=== PATIENT | female | born 1940 | race Caucasian/White ===

== ENCOUNTER → 2016-04-12 | Outpatient (CLI) | payer MEDICARE ==
[~2016-04-12] MED LIST: ACTOS 45MG45 MG/TAB PO; BUMEX2 MG PO; CEFTIN500 MG PO; CEPACOL SORE TH1 LO8 MM; COZAAR 25MG25 MG/TAB PO; DELSYM30 MG/5 ML PO; DIOVAN 40MG40 MG PO; DOXYCYCLINE 10100 MG PO; GLUCOPHAGE500 MG/TAB PO; GLUCOTROL XL2.5 MG PO; HYTRIN 1MG C1 MG/CAP PO; ISORDIL 20MG20 M1 PO; LASIX 20MG TABL20 MG PO; LASIX 40MG TABL40 MG PO; MUCINEX DM 30 M1 TE1; NO HOME MEDICATIONS; NORVASC2.5 MG PO; PHOSLO667 MG PO; PRILOSEC 20MG20 MG PO; PRINIVIL10 MG PO; PROAIR HFA0.09 MG/AC IH; PYRIDIUM200 M1 PO; SODIUM BICARBO650 MG PO; TESSALON P100 MG/CAP PO; TOPROL XL 25MG25 MG PO; TOPROL XL 50MG50 MG PO; TUSS PO; ZESTRIL 20MG TA20 MG PO; ZITHROMAX 250M250 MG PO
[2016-04-12 11:42] LABS: ALBUMIN 3.7 gm/dL (3.5-5.0); CALCIUM 9.2 mg/dL (8.4-10.2); CREATININE, serum 2.64 mg/dL (0.52-1.25); PHOSPHOROUS 5.4 mg/dL (2.5-4.5); POTASSIUM 5.2 mmol/L (3.4-5.0)
== END ==
LOC: COL.LAB 10:55
PROVIDERS: Internal Medicine
DX: N18.9 Chronic kidney disease, unspecified (principal)

== ENCOUNTER 2016-04-24 07:26 | Inpatient (IN) | payer MEDICARE ==
[~2016-04-24] VITALS: Ht 149.9 cm; Wt 57.6 kg
[~2016-04-24 07:26] MED LIST changes: -BUMEX2 MG PO; -CEPACOL SORE TH1 LO8 MM; -HYTRIN 1MG C1 MG/CAP PO; -ISORDIL 20MG20 M1 PO; -PHOSLO667 MG PO; -SODIUM BICARBO650 MG PO
[2016-04-24 08:10] LABS: BASO % 0.6 % (0.0-2.0); EOS % 0.6 % (0-4.0); GRAN # 4.9 (1.4-6.5); GRAN % 72.8 % (42.2-75.2); LYMPH # 1.5 (1.2-3.4); MEAN CELL VOLUME 92 fl (80.0-100.0); MEAN CORPUSCULAR HGB CONC 33 g/dl (33.0-37.0); MONO # 0.2 (0.1-0.6); MONO % 3.6 % (1.7-9.3); PLATELET COUNT 254 K/mm3 (130-400); RED BLOOD COUNT 3.48 M/mm3 (4.10-5.30); REDCELL DISTRIBUTION WIDTH-CV 14.4 % (11.5-14.5); WHITE BLOOD COUNT 6.7 K/mm3 (4.8-10.8)
[2016-04-24 08:14] LABS: INR 1.1 (0.8-3.0); PROTHROMBIN TIME 12.7 SECONDS (9.7-12.8)
[2016-04-24 08:18] LABS: HEMATOCRIT 31.9 % (37.0-47.0); HEMOGLOBIN 10.4 g/dl (12.5-16.0); MEAN CORPUSCULAR HEMOGLOBIN 30 pg (27.0-31.0)
[2016-04-24 08:21] LABS: ADJUSTED CALCIUM 9.1 mg/dL (8.4-10.2); ALBUMIN 3.8 gm/dL (3.5-5.0); BILIRUBIN,TOTAL 1.4 mg/dL (0.0-1.0); CALCIUM 8.9 mg/dL (8.4-10.2); CREATININE, serum 2.94 mg/dL (0.52-1.25); TOTAL PROTEIN 7.6 gm/dL (6.4-8.2)
[2016-04-24 08:28] LABS: POTASSIUM 5.9 mmol/L (3.4-5.0)
[2016-04-24 08:33] LABS: TROPONIN-I 0.015 ng/mL (0.000-0.034)
[2016-04-24 09:19] LABS: PH 5 (5-8); SQUAMOUS EPITHELIAL 0-2 /hpf; URINE APPEARANCE Clear; URINE BACTERIA Rare /hpf; URINE BILIRUBIN Negative (NEGATIVE); URINE BLOOD 1+ (NEGATIVE); URINE COLOR Yellow; URINE GLUCOSE 1+ (NEGATIVE); URINE KETONE Negative (NEGATIVE); URINE UROBILINOGEN Negative (NEGATIVE)
[2016-04-24 10:13] VITALS: BP 159/75; PULSE 71; TEMP 97.9
[2016-04-24 12:15] VITALS: BP 163/72; PULSE 72; TEMP 97.6
[2016-04-24 12:57] LABS: AMYLASE 59 U/L (30-110); LIPASE 70 U/L (23-300)
[2016-04-24 15:41] VITALS: BP 155/63; PULSE 65; TEMP 97.6
[2016-04-24 20:38] VITALS: BP 152/65; PULSE 68; TEMP 97.2
[2016-04-25 00:03] VITALS: BP 153/62; PULSE 68; TEMP 97.4
[2016-04-25 03:37] VITALS: BP 152/73; PULSE 65; TEMP 97.7
[2016-04-25 07:55] LABS: CALCIUM 8.9 mg/dL (8.4-10.2); CREATININE, serum 3.19 mg/dL (0.52-1.25); PHOSPHOROUS 6.4 mg/dL (2.5-4.5); POTASSIUM 5.4 mmol/L (3.4-5.0)
[2016-04-25 08:32] VITALS: BP 164/69; PULSE 75; TEMP 97.5
[2016-04-25 12:36] VITALS: BP 153/66; PULSE 62; TEMP 97.3
[2016-04-25 17:21] VITALS: BP 102/70; PULSE 65; TEMP 97.3
[2016-04-25 20:12] VITALS: BP 152/64; PULSE 62; TEMP 97.5
[2016-04-25 22:16] LABS: PROT-CREAT RATIO, URINE 4.5 (())
[2016-04-26] VITALS (7 sets, daily range): BP systolic 154–174; BP diastolic 59–69; PULSE 53–86; TEMP 97.4–98.1
[2016-04-26 07:26] LABS: ALBUMIN 3.6 gm/dL (3.5-5.0); CALCIUM 8.5 mg/dL (8.4-10.2); CREATININE, serum 3.39 mg/dL (0.52-1.25); PHOSPHOROUS 5.9 mg/dL (2.5-4.5); POTASSIUM 4.5 mmol/L (3.4-5.0)
[2016-04-27 03:52] VITALS: BP 151/69; PULSE 52; TEMP 97.6
[2016-04-27 08:29] LABS: ALBUMIN 3.5 gm/dL (3.5-5.0); CALCIUM 8.4 mg/dL (8.4-10.2); CREATININE, serum 3.37 mg/dL (0.52-1.25); PHOSPHOROUS 5.4 mg/dL (2.5-4.5); POTASSIUM 4.2 mmol/L (3.4-5.0)
[2016-04-27 08:44] VITALS: BP 156/57; PULSE 57; TEMP 96.1
[2016-04-27] MEDS ORDERED: BUMEX2 MG PO (10:27)
[2016-04-27] MEDS ORDERED: SODIUM BICARBO650 MG PO (10:31)
[2016-04-27] MEDS ORDERED: DIOVAN 40MG40 MG PO (10:31)
== END 2016-04-27 11:54 | disposition home or self-care (01) | DRG 291 ==
LOC: COL.ER 07:26 → MEDICAL 09:15
PROVIDERS: Family Medicine; Internal Medicine Nephrology
DX: I13.0 Hypertensive heart and chronic kidney disease with heart failure and stage 1 through stage 4 chronic kidney disease, or unspecified chronic kidney disease (principal); I50.23 Acute on chronic systolic (congestive) heart failure; N18.4 Chronic kidney disease, stage 4 (severe); E87.2 Acidosis; E11.21 Type 2 diabetes mellitus with diabetic nephropathy; D63.1 Anemia in chronic kidney disease; E11.65 Type 2 diabetes mellitus with hyperglycemia; E87.5 Hyperkalemia
CPT/HCPCS: J1650

== ENCOUNTER → 2016-05-11 | Outpatient (CLI) | payer MEDICARE ==
[~2016-05-11] MED LIST changes: +BUMEX2 MG PO; +CEPACOL SORE TH1 LO8 MM; +HYTRIN 1MG C1 MG/CAP PO; +ISORDIL 20MG20 M1 PO; +PHOSLO667 MG PO; +SODIUM BICARBO650 MG PO
[2016-05-11 11:06] LABS: CREATININE, serum 3.43 mg/dL (0.52-1.25); POTASSIUM 4.8 mmol/L (3.4-5.0)
[2016-05-11 11:08] LABS: HEMATOCRIT 34.7 % (37.0-47.0); HEMOGLOBIN 11.7 g/dl (12.5-16.0)
[2016-05-11 23:28] LABS: PROT-CREAT RATIO, URINE 3.2 (())
== END ==
LOC: COL.LAB 05-10 10:52
PROVIDERS: Internal Medicine Nephrology
DX: Z01.89 Encounter for other specified special examinations (principal)

== ENCOUNTER → 2016-06-20 | Outpatient (CLI) | payer MEDICARE ==
[2016-06-20 11:11] LABS: HEMATOCRIT 31.6 % (37.0-47.0); HEMOGLOBIN 10.6 g/dl (12.5-16.0)
[2016-06-20 11:20] LABS: ALBUMIN 3.7 gm/dL (3.5-5.0); CALCIUM 8.7 mg/dL (8.4-10.2); CREATININE, serum 3.59 mg/dL (0.52-1.25); PHOSPHOROUS 5.7 mg/dL (2.5-4.5)
[2016-06-20 22:45] LABS: HEPATITIS B SURFACE AB-QL Negative (())
== END ==
LOC: COL.LAB 10:45
PROVIDERS: Internal Medicine Nephrology
DX: Z01.89 Encounter for other specified special examinations (principal)

== ENCOUNTER 2016-07-13 18:43 | Inpatient (IN) | payer MEDICARE ==
[~2016-07-13] VITALS: Wt 61.4 kg
[~2016-07-13 18:43] MED LIST changes: -CEPACOL SORE TH1 LO8 MM; -HYTRIN 1MG C1 MG/CAP PO; -ISORDIL 20MG20 M1 PO; -PHOSLO667 MG PO
[2016-07-13 20:20] LABS: ADJUSTED CALCIUM 8.8 mg/dL (8.4-10.2); CALCIUM 8.8 mg/dL (8.4-10.2); POTASSIUM 4.8 mmol/L (3.4-5.0); TOTAL PROTEIN 7.8 gm/dL (6.4-8.2)
[2016-07-13 20:22] LABS: CREATININE, serum 4.06 mg/dL (0.52-1.25)
[2016-07-13 20:27] LABS: BASO # 0.1 (0.0-0.2); BASO % 0.5 % (0.0-2.0); EOS # 0.1 (0.0-0.7); EOS % 0.9 % (0-4.0); GRAN # 7.5 (1.4-6.5); GRAN % 75.4 % (42.2-75.2); LYMPH # 1.7 (1.2-3.4); LYMPH % 16.9 % (20.0-51.0); MEAN CELL VOLUME 88 fl (80.0-100.0); MEAN CORPUSCULAR HGB CONC 34 g/dl (33.0-37.0); MEAN PLATELET VOLUME 10.7 fl (7.4-10.4); MONO # 0.6 (0.1-0.6); PLATELET COUNT 278 K/mm3 (130-400); RED BLOOD COUNT 3.37 M/mm3 (4.10-5.30)
[2016-07-13 20:31] LABS: TROPONIN-I 0.014 ng/mL (0.000-0.034)
[2016-07-13 20:34] LABS: HEMATOCRIT 29.6 % (37.0-47.0); HEMOGLOBIN 10.1 g/dl (12.5-16.0); MEAN CORPUSCULAR HEMOGLOBIN 30 pg (27.0-31.0)
[2016-07-13 20:37] LABS: INFLUENZA B NEGATIVE
[2016-07-13 20:37] LABS: INR 1.2 (0.8-3.0); PROTHROMBIN TIME 13.3 SECONDS (9.7-12.8)
[2016-07-13 20:40] LABS: PARTIAL THROMBOPLASTIN TIME 26.2 SECONDS (26.0-37.0)
[2016-07-13] MEDS ORDERED: HYTRIN 1MG C1 MG/CAP PO (20:47)
[2016-07-13] MEDS ORDERED: PHOSLO667 MG PO (20:50)
[2016-07-14 02:11] VITALS: BP 155/65; PULSE 112; TEMP 98.4
[2016-07-14 04:08] VITALS: BP 126/59; PULSE 94; TEMP 98
[2016-07-14 07:38] VITALS: BP 105/42; PULSE 82; TEMP 99.4
[2016-07-14 13:15] VITALS: BP 133/80; PULSE 83; TEMP 98
[2016-07-14 15:19] VITALS: BP 151/70; PULSE 55
[2016-07-14 19:50] VITALS: BP 151/65; PULSE 83; TEMP 97.6
[2016-07-15 00:20] VITALS: BP 115/40; PULSE 82; TEMP 98.2
[2016-07-15 03:35] VITALS: BP 115/53; PULSE 84; TEMP 98.8
[2016-07-15 08:00] VITALS: BP 132/63; PULSE 76; TEMP 97.8
[2016-07-15 08:11] LABS: ALBUMIN 3.2 gm/dL (3.5-5.0); PHOSPHOROUS 5.8 mg/dL (2.5-4.5); POTASSIUM 4.5 mmol/L (3.4-5.0)
[2016-07-15 08:12] LABS: BASO % 0.5 % (0.0-2.0); EOS # 0.2 (0.0-0.7); EOS % 2.4 % (0-4.0); GRAN % 64.3 % (42.2-75.2); LYMPH # 1.5 (1.2-3.4); MEAN CELL VOLUME 90 fl (80.0-100.0); MEAN CORPUSCULAR HGB CONC 34 g/dl (33.0-37.0); MEAN PLATELET VOLUME 10.6 fl (7.4-10.4); MONO # 0.5 (0.1-0.6); MONO % 8.3 % (1.7-9.3); PLATELET COUNT 252 K/mm3 (130-400); RED BLOOD COUNT 2.76 M/mm3 (4.10-5.30); REDCELL DISTRIBUTION WIDTH-CV 13.1 % (11.5-14.5); WHITE BLOOD COUNT 6.2 K/mm3 (4.8-10.8)
[2016-07-15 08:27] LABS: HEMOGLOBIN 8.4 g/dl (12.5-16.0); MEAN CORPUSCULAR HEMOGLOBIN 30 pg (27.0-31.0)
[2016-07-15 08:28] LABS: HEMATOCRIT 24.8 % (37.0-47.0)
[2016-07-15 08:32] LABS: CREATININE, serum 4.54 mg/dL (0.52-1.25)
[2016-07-15 08:48] LABS: ADD PATHOLOGY DIFF REVIEW NO
[2016-07-15 10:18] LABS: BAND 8 % (0-10); NEUTROPHILS 66 % (42.0-75.2); PLATELET ESTIMATE NORMAL (NORMAL); TOTAL CELLS COUNTED 100
[2016-07-15 12:44] VITALS: BP 126/50; PULSE 84; TEMP 98.3
[2016-07-15] MEDS ORDERED: SODIUM BICARBO650 MG PO (16:35)
[2016-07-15] MEDS ORDERED: ISORDIL 20MG20 M1 PO (16:36)
[2016-07-15] MEDS ORDERED: PHOSLO667 MG PO (16:39)
[2016-07-15] MEDS ORDERED: DIOVAN 40MG40 MG PO (16:54)
[2016-07-15] MEDS ORDERED: BUMEX2 MG PO (17:09)
[2016-07-15] MEDS ORDERED: CEPACOL SORE TH1 LO8 MM (17:12)
== END 2016-07-15 17:50 | disposition home or self-care (01) | DRG 291 ==
LOC: COL.ER 18:43 → MEDICAL 21:38
PROVIDERS: Emergency Medicine; Internal Medicine Nephrology
DX: I13.2 Hypertensive heart and chronic kidney disease with heart failure and with stage 5 chronic kidney disease, or end stage renal disease (principal); I50.21 Acute systolic (congestive) heart failure; N18.5 Chronic kidney disease, stage 5; D63.1 Anemia in chronic kidney disease; E11.21 Type 2 diabetes mellitus with diabetic nephropathy; E11.22 Type 2 diabetes mellitus with diabetic chronic kidney disease; I08.0 Rheumatic disorders of both mitral and aortic valves
CPT/HCPCS: J1650; J1815

== ENCOUNTER → 2016-07-25 | Outpatient (CLI) | payer MEDICARE ==
[~2016-07-25] MED LIST changes: +CEPACOL SORE TH1 LO8 MM; +HYTRIN 1MG C1 MG/CAP PO; +ISORDIL 20MG20 M1 PO; +PHOSLO667 MG PO
[2016-07-25 13:10] LABS: HEMOGLOBIN 10.2 g/dl (12.5-16.0)
[2016-07-25 13:15] LABS: ALBUMIN 3.9 gm/dL (3.5-5.0); CALCIUM 8.9 mg/dL (8.4-10.2); CREATININE, serum 3.2 mg/dL (0.52-1.25); PHOSPHOROUS 4.9 mg/dL (2.5-4.5); POTASSIUM 5.4 mmol/L (3.4-5.0)
[2016-07-25 21:41] LABS: HEPATITIS B SURFACE AB-QL Negative (())
== END ==
LOC: COL.LAB 09:52
PROVIDERS: Internal Medicine Nephrology
DX: I50.9 Heart failure, unspecified (principal); N19 Unspecified kidney failure

== ENCOUNTER → 2016-08-09 | Outpatient (CLI) | payer MEDICARE ==
[2016-08-09 13:09] LABS: ALBUMIN 3.8 gm/dL (3.5-5.0); CALCIUM 8.2 mg/dL (8.4-10.2); CREATININE, serum 3.04 mg/dL (0.52-1.25); PHOSPHOROUS 4.8 mg/dL (2.5-4.5); POTASSIUM 5.1 mmol/L (3.4-5.0)
== END ==
LOC: COL.LAB 11:54
PROVIDERS: Internal Medicine Nephrology
DX: Z01.89 Encounter for other specified special examinations (principal)

== ENCOUNTER → 2016-09-19 | Outpatient (CLI) | payer MEDICARE ==
[2016-09-19 12:12] LABS: ALBUMIN 3.7 gm/dL (3.5-5.0); CALCIUM 8.5 mg/dL (8.4-10.2); CREATININE, serum 3.48 mg/dL (0.52-1.25); PHOSPHOROUS 4.6 mg/dL (2.5-4.5)
[2016-09-19 12:37] LABS: POTASSIUM 5.9 mmol/L (3.4-5.0)
== END ==
LOC: COL.LAB 10:54
PROVIDERS: Internal Medicine Nephrology
DX: Z01.89 Encounter for other specified special examinations (principal)

== ENCOUNTER → 2016-10-03 | Outpatient (CLI) | payer MEDICARE ==
[2016-10-03 11:43] LABS: HEMATOCRIT 27.6 % (37.0-47.0); HEMOGLOBIN 9.4 g/dl (12.5-16.0)
[2016-10-03 11:49] LABS: CALCIUM 7.7 mg/dL (8.4-10.2); PHOSPHOROUS 7.5 mg/dL (2.5-4.5); POTASSIUM 4.6 mmol/L (3.4-5.0)
[2016-10-03 12:31] LABS: CREATININE, serum 4.49 mg/dL (0.52-1.25)
== END ==
LOC: COL.LAB 10:23
PROVIDERS: Internal Medicine Nephrology
DX: N18.4 Chronic kidney disease, stage 4 (severe) (principal); D63.1 Anemia in chronic kidney disease

== ENCOUNTER → 2016-12-12 | Outpatient (CLI) | payer MEDICARE ==
[2016-12-12 10:39] LABS: HEMATOCRIT 28.9 % (37.0-47.0); HEMOGLOBIN 9.9 g/dl (12.5-16.0)
[2016-12-12 10:51] LABS: CALCIUM 8.5 mg/dL (8.4-10.2); POTASSIUM 5.7 mmol/L (3.4-5.0)
[2016-12-12 12:08] LABS: CREATININE, serum 3.94 mg/dL (0.52-1.25)
== END ==
LOC: COL.LAB 09:36
PROVIDERS: Internal Medicine Nephrology
DX: N18.4 Chronic kidney disease, stage 4 (severe) (principal); D63.1 Anemia in chronic kidney disease

== ENCOUNTER → 2017-03-06 | Outpatient (CLI) | payer MEDICARE ==
[2017-03-06 10:29] LABS: ALBUMIN 3.7 gm/dL (3.5-5.0); CALCIUM 7.8 mg/dL (8.4-10.2); PHOSPHOROUS 5.8 mg/dL (2.5-4.5); POTASSIUM 5.1 mmol/L (3.4-5.0)
[2017-03-06 10:35] LABS: CREATININE, serum 4.38 mg/dL (0.52-1.25)
== END ==
LOC: COL.LAB 10:00
PROVIDERS: Internal Medicine Nephrology
DX: N18.5 Chronic kidney disease, stage 5 (principal)

== ENCOUNTER → 2017-04-04 | Outpatient (CLI) | payer MEDICARE ==
[2017-04-04 11:54] LABS: ALBUMIN 3.9 gm/dL (3.5-5.0); CALCIUM 7.1 mg/dL (8.4-10.2); PHOSPHOROUS 5.7 mg/dL (2.5-4.5); POTASSIUM 4.8 mmol/L (3.4-5.0)
[2017-04-04 12:10] LABS: CREATININE, serum 4.5 mg/dL (0.52-1.25)
== END ==
LOC: COL.LAB 11:21
PROVIDERS: Internal Medicine Nephrology
DX: N18.5 Chronic kidney disease, stage 5 (principal)

== ENCOUNTER → 2017-06-12 | Outpatient (CLI) | payer MEDICARE ==
[2017-06-12 11:04] LABS: ALBUMIN 3.7 gm/dL (3.5-5.0); CALCIUM 6.7 mg/dL (8.4-10.2); PHOSPHOROUS 6.1 mg/dL (2.5-4.5); POTASSIUM 4.9 mmol/L (3.4-5.0)
[2017-06-12 13:35] LABS: CREATININE, serum 4.83 mg/dL (0.52-1.25)
== END ==
LOC: COL.LAB 10:35
PROVIDERS: Internal Medicine Nephrology
DX: N18.5 Chronic kidney disease, stage 5 (principal)

== ENCOUNTER → 2017-08-22 | Outpatient (CLI) | payer MEDICARE ==
[~2017-08-22] MED LIST changes: +APRESOLINE50 MG PO; +ASPIRIN 81M81 MG/TA2 PO
[2017-08-22 10:53] LABS: POTASSIUM 4.9 mmol/L (3.4-5.0)
== END ==
LOC: COL.LAB 10:13
PROVIDERS: Internal Medicine Nephrology
DX: Z01.89 Encounter for other specified special examinations (principal)

== ENCOUNTER → 2017-11-06 | Outpatient (CLI) | payer MEDICARE ==
[2017-11-06 12:09] LABS: ALBUMIN 3.6 gm/dL (3.5-5.0); PHOSPHOROUS 6.7 mg/dL (2.5-4.5)
[2017-11-06 12:21] LABS: CALCIUM 5.6 mg/dL (8.4-10.2); CREATININE, serum 5.41 mg/dL (0.52-1.25)
== END ==
LOC: COL.LAB 11:39
PROVIDERS: Internal Medicine Nephrology
DX: I50.22 Chronic systolic (congestive) heart failure (principal); N18.5 Chronic kidney disease, stage 5

== ENCOUNTER → 2017-12-13 | Outpatient (CLI) | payer MEDICARE ==
[2017-12-13 10:56] LABS: ALBUMIN 3.7 gm/dL (3.5-5.0); PHOSPHOROUS 5.6 mg/dL (2.5-4.5); POTASSIUM 4.7 mmol/L (3.4-5.0)
[2017-12-13 12:33] LABS: CALCIUM 5.7 mg/dL (8.4-10.2); CREATININE, serum 5.5 mg/dL (0.52-1.25)
== END ==
LOC: COL.LAB 10:13
PROVIDERS: Family Medicine
DX: N18.5 Chronic kidney disease, stage 5 (principal); I50.22 Chronic systolic (congestive) heart failure; R60.0 Localized edema

== ENCOUNTER → 2018-03-08 | Outpatient (CLI) | payer MEDICARE ==
[2018-03-08 12:22] LABS: CALCIUM 6.1 mg/dL (8.4-10.2); POTASSIUM 4.4 mmol/L (3.4-5.0)
[2018-03-08 12:46] LABS: CREATININE, serum 6.02 mg/dL (0.52-1.25)
== END ==
LOC: COL.LAB 10:51
PROVIDERS: Internal Medicine Nephrology
DX: I12.0 Hypertensive chronic kidney disease with stage 5 chronic kidney disease or end stage renal disease (principal); N18.5 Chronic kidney disease, stage 5; R60.0 Localized edema

== ENCOUNTER → 2018-06-28 | Outpatient (CLI) | payer MEDICARE ==
[2018-06-28 11:41] LABS: ALBUMIN 3.6 gm/dL (3.5-5.0); CALCIUM 6.1 mg/dL (8.4-10.2); CREATININE, serum 6.78 (0.52-1.25); PHOSPHOROUS 6.1 mg/dL (2.5-4.5); POTASSIUM 5.1 mmol/L (3.4-5.0)
== END ==
LOC: COL.LAB 10:45
PROVIDERS: Internal Medicine Nephrology
DX: Z01.89 Encounter for other specified special examinations (principal)

== ENCOUNTER 2018-10-06 14:21 | Inpatient (IN) | payer MEDICARE ==
[~2018-10-06] VITALS: Ht 160 cm; Wt 58.6 kg
[2018-10-06 16:03] LABS: COLLECTION METHOD CLEAN CATCH
[2018-10-06 16:04] LABS: BASO % 0.2 % (0.0-2.0); EOS # 0.1 (0.0-0.7); EOS % 0.7 % (0-4.0); GRAN # 7.4 (1.4-6.5); LYMPH # 0.8 (1.2-3.4); LYMPH % 9.4 % (20.0-51.0); MEAN CELL VOLUME 94 fl (80.0-100.0); MEAN CORPUSCULAR HGB CONC 34 g/dl (33.0-37.0); MEAN PLATELET VOLUME 9.5 fl (7.4-10.4); MONO # 0.4 (0.1-0.6); MONO % 4.4 % (1.7-9.3); PLATELET COUNT 288 K/mm3 (130-400); RED BLOOD COUNT 2.63 M/mm3 (4.10-5.30); REDCELL DISTRIBUTION WIDTH-CV 12.6 % (11.5-14.5)
[2018-10-06 16:06] LABS: HEMATOCRIT 24.7 % (37.0-47.0); HEMOGLOBIN 8.3 g/dl (12.5-16.0); MEAN CORPUSCULAR HEMOGLOBIN 32 pg (27.0-31.0)
[2018-10-06 16:09] LABS: MUCOUS Present /lpf; PH 6 (5-8); SQUAMOUS EPITHELIAL 0-2 /hpf; URINE APPEARANCE Clear; URINE BACTERIA Rare /hpf; URINE BILIRUBIN Negative (NEGATIVE); URINE BLOOD Negative (NEGATIVE); URINE COLOR Straw; URINE GLUCOSE 1+ (NEGATIVE); URINE KETONE Negative (NEGATIVE); URINE LEUKOCYTE ESTERASE Negative (NEGATIVE); URINE NITRATE Negative (NEGATIVE); URINE PROTEIN(semi-quant) 2+ (NEGATIVE); URINE RBC 0-2 /hpf; URINE UROBILINOGEN Negative (NEGATIVE)
[2018-10-06 16:15] LABS: ALANINE AMINOTRANSFERASE < 6 U/L (9-52); ALBUMIN 3.8 gm/dL (3.5-5.0); ALKALINE PHOSPHATASE 102 U/L (50-136); ANION GAP 14 mmol/L (7-16); AST,SGOT 26 U/L (15-37); BILIRUBIN,TOTAL 0.4 mg/dL (0.0-1.0); BLOOD UREA NITROGEN 99 mg/dL (7-17); CARBON DIOXIDE 18 mmol/L (22-30); CHLORIDE 106 mmol/L (98-107); GLUCOSE 146 mg/dL (74-106); LIPASE 181 U/L (23-300); POTASSIUM 5.6 mmol/L (3.4-5.0); SODIUM 137 mmol/L (137-145); TOTAL PROTEIN 7.6 gm/dL (6.4-8.2)
[2018-10-06 16:19] LABS: CREATININE, serum 7.89 (0.52-1.25)
[2018-10-06 16:21] LABS: CALCIUM 5.3 mg/dL (8.4-10.2)
[2018-10-06 17:11] LABS: MAGNESIUM 1.7 mg/dL (1.6-2.3); PHOSPHOROUS 6.2 mg/dL (2.5-4.5)
--- NOTE | 2018-10-06 19:25 | NUR ---
Received from ED, 78 year old female with diagnosis nausea/vomiting and weakness. Is alert, Bengali speaking female accompanied by family. Has SL to left hand without redness or swelling. Has oxygen on at 2L/NC for shortness of breath. Assisted to bed, call light and bed orientation provided to patient and spouse HarishJeffrey
[2018-10-06 19:50] VITALS: BP 182/75; PULSE 85; TEMP 98.1
--- NOTE | 2018-10-06 20:35 | NUR ---
Notified Dr Riuz of patients arrival. New orders received.
--- NOTE | 2018-10-06 21:30 | NUR ---
Takes HS meds including jello and juice. BS=71mg/dl. HOB elevated for comfort.
--- NOTE | 2018-10-06 23:20 | NUR ---
Patient up to bathroom with help to void. Short of breath with walking. Back to bed, oxygen put on at 3L/NC. Head of bed elevated for comfort.
[2018-10-06 23:46] VITALS: BP 151/58; PULSE 78; TEMP 97.8
[2018-10-07 03:58] VITALS: BP 147/65; PULSE 72; TEMP 98.3
--- NOTE | 2018-10-07 04:23 | NUR ---
Assisted patient to bathroom, slow steady gait. Voids and back to bed. Not as noticeably short of breath as last time she went to the bathroom, placed back on oxygen at 3L/nc.
[2018-10-07 07:11] LABS: ALBUMIN 3.1 gm/dL (3.5-5.0); PHOSPHOROUS 6.5 mg/dL (2.5-4.5); POTASSIUM 4.9 mmol/L (3.4-5.0)
[2018-10-07 07:13] LABS: INR 1.1 (0.8-3.0); PROTHROMBIN TIME 13.3 SECONDS (9.7-12.8)
[2018-10-07 07:17] LABS: BASO % 0.6 % (0.0-2.0); EOS # 0.1 (0.0-0.7); EOS % 2.3 % (0-4.0); GRAN # 4.6 (1.4-6.5); LYMPH % 15.7 % (20.0-51.0); MEAN CELL VOLUME 96 fl (80.0-100.0); MEAN CORPUSCULAR HGB CONC 32 g/dl (33.0-37.0); MEAN PLATELET VOLUME 9.7 fl (7.4-10.4); MONO # 0.4 (0.1-0.6); MONO % 7.1 % (1.7-9.3); PLATELET COUNT 269 K/mm3 (130-400); RED BLOOD COUNT 2.34 M/mm3 (4.10-5.30); REDCELL DISTRIBUTION WIDTH-CV 12.7 % (11.5-14.5)
[2018-10-07 07:19] LABS: CREATININE, serum 7.95 (0.52-1.25)
[2018-10-07 07:20] LABS: CALCIUM 5.2 mg/dL (8.4-10.2)
[2018-10-07 07:25] LABS: HEMATOCRIT 22.4 % (37.0-47.0); HEMOGLOBIN 7.2 g/dl (12.5-16.0); MEAN CORPUSCULAR HEMOGLOBIN 31 pg (27.0-31.0)
--- NOTE | 2018-10-07 08:00 | NUR ---
Patient resting in bed at this time. Patient is alert and oriented, does not speak khmer, but when family translates, patient appears to answer questions appropriately. Patient denies pain or nausea, states she is still feeling short of breath, wearing O2 at 2L via NC. Lab called to report critical calcium, reported to Dr. Foster, no new orders. Bilateral lower extremities have pitting edema. Patient denies further needs at this time, call light within reach.
[2018-10-07 08:17] VITALS: BP 153/56; PULSE 77; TEMP 97.6
--- NOTE | 2018-10-07 11:00 | NUR ---
Patient lives at home with her (Harish Núñez [phone]) in [place], [place] and plans to return home upon discharge. Patient uses a walker for mobility assistance and receives support as needed from her , Harish. Patient's primary care physician is Dr. Nely Abernathy and she also receives medical care from Dr. Jonathon Ruiz as needed. Patient's pharmacy is [facility] ([place] and she does not have advance directives completed at this time. Patient's daughter (Ariana Núñez [phone]) lives in [place] and is supportive of patient as needed. No further needs and social director will follow as needed.
[2018-10-07] MEDS ORDERED: ZOFRAN 4MG T4 MG/TAB PO (11:49)
[2018-10-07 12:17] VITALS: BP 154/57; PULSE 74; TEMP 97.9
[2018-10-07 16:30] VITALS: BP 169/71; PULSE 77; TEMP 98.2
--- NOTE | 2018-10-07 18:10 | NUR ---
Patient and daughter given discharge teaching. Instructed to make follow up appointments with Dr. Foster and primary care tomorrow. 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 Foster tomorrow. INT removed from left hand, hemostasis achieved. Escorted to patient entrance and assisted into private vehicle.
== END 2018-10-07 18:10 | disposition home or self-care (01) | DRG 698 ==
LOC: COL.ER 14:21 → SURG 18:15
PROVIDERS: Emergency Medicine; ADMIT Internal Medicine Nephrology
DX: E11.22 Type 2 diabetes mellitus with diabetic chronic kidney disease (principal); I50.23 Acute on chronic systolic (congestive) heart failure; I13.2 Hypertensive heart and chronic kidney disease with heart failure and with stage 5 chronic kidney disease, or end stage renal disease; N18.6 End stage renal disease; D63.1 Anemia in chronic kidney disease; E87.5 Hyperkalemia; E11.21 Type 2 diabetes mellitus with diabetic nephropathy; E83.51 Hypocalcemia; E83.39 Other disorders of phosphorus metabolism; Z66 Do not resuscitate; Z79.82 Long term (current) use of aspirin; Z90.710 Acquired absence of both cervix and uterus
CPT/HCPCS: A4216; J0610; J0696